=== PATIENT | female | born 1960 | race Caucasian/White ===

== ENCOUNTER → 2018-01-22 | Outpatient (CLI) | payer BC | LOC: LAB SHORT 16:45 → LAB 16:45 | PROVIDERS: Nurse Practitioner | DX: N95.0 Postmenopausal bleeding (principal) | CPT/HCPCS: G0145 ==

== ENCOUNTER 2018-03-13 20:22 | Emergency (ER) | payer BC ==
[~2018-03-13] VITALS: Ht 160 cm; Wt 80.3 kg
[~2018-03-13 20:22] MED LIST: ACET325 PO; Zantac25 MG/1 ML IJ
== END 2018-03-13 22:43 | disposition home or self-care (01) ==
LOC: ER 20:22
DX: M79.662 Pain in left lower leg (principal); Z87.891 Personal history of nicotine dependence
CPT/HCPCS: 93971; 99284-25